=== PATIENT | male | born 1995 | race Caucasian/White ===

== ENCOUNTER 2017-03-07 12:29 | Emergency (ER) | payer OTHER ==
[~2017-03-07] VITALS: Ht 177.8 cm; Wt 72.6 kg
[~2017-03-07 12:29] MED LIST: SERT25TA PO
[2017-03-07 12:33] VITALS: BP 122/77
== END 2017-03-07 14:53 | disposition home or self-care (01) ==
LOC: ED 14:37
DX: S53.492A Other sprain of left elbow, initial encounter (principal); S80.212A Abrasion, left knee, initial encounter; V29.88XA Motorcycle rider (driver) (passenger) injured in other specified transport accidents, initial encounter; Y93.89 Activity, other specified; Y99.8 Other external cause status; Y92.828 Other wilderness area as the place of occurrence of the external cause
CPT/HCPCS: 29125; 99284